=== PATIENT | male | born 1935 | race Caucasian/White ===

== ENCOUNTER 2016-12-19 15:35 | Emergency (ER) | payer MEDICARE, BC ==
[2016-12-19 16:08] VITALS: TEMP 98
[2016-12-19 16:42] LABS: BASOPHILS % (AUTO) 1 % (0-3); EOSINOPHILS % (AUTO) 2 % (0-9); HEMATOCRIT 33 % (39-53); MEAN CORPUSCULAR HGB CONC 34.1 gm/dl (32.0-36.0); MEAN CORPUSCULAR VOLUME 86 fL (80-100); MONOCYTES % (AUTO) 11.8 % (0-12); NEUTROPHILS % (AUTO) 71.3 % (37-80)
[2016-12-19 17:02] LABS: ALBUMIN 3.4 gm/dl (3.4-5.0); CALCIUM 8.7 mg/dl (8.5-10.1)
[2016-12-19 17:04] LABS: POTASSIUM 2.9 mMol/L (3.5-5.1)
[2016-12-19] MEDS ORDERED: POTASSIUM CHLORIDE 10 MEQ TER PO ONE (17:07)
[2016-12-19] MEDS ORDERED: SODIUM CHLORIDE 0.9% FLUSH 10 ML SOL IV PRN (17:26)
[2016-12-19] MEDS ORDERED: SODIUM CHLORIDE/KCL 20MEQ 1,000 ML IV ONE ×2 (17:28→17:31)
[2016-12-19] MEDS ORDERED: POTASSIUM CHLORIDE 10 MEQ TER ONE (17:38)
[2016-12-19] MEDS ORDERED: QUETIAPINE FUMARATE 25 MG TAB PO ONE (18:12)
[2016-12-19 18:14] LABS: APPEARANCE,URINE Clear; BILIRUBIN,URINE NEGATIVE (NEGATIVE); COLOR,URINE Yellow; GLUCOSE, URINE (UA) TRACE (NEGATIVE); KETONES,URINE NEGATIVE (NEGATIVE); LEUKOCYTE ESTERASE ,URINE NEGATIVE (NEGATIVE); NITRATE,URINE NEGATIVE (NEGATIVE); OCCULT BLOOD,URINE TRACE LYSED (NEG-TRACE); UROBILINOGEN,URINE 0.2 (0.2-1.0 EU)
[2016-12-19 18:37] LABS: RBC,URINE 0-2 (0-3AV/HPF); WBC,URINE 0-2 (0-5AV/HPF)
[2016-12-19] MEDS ORDERED: QUETIAPINE FUMARATE 25 MG TAB ONE (18:55)
[2016-12-19 20:37] VITALS: BP 167/89; PULSE 64; RESP 20; O2SAT 96
== END 2016-12-19 19:19 | disposition home or self-care (01) | DRG 57 ==
LOC: ED 15:35
DX: G31.83 Neurocognitive disorder with Lewy bodies (principal); F02.80 Dementia in other diseases classified elsewhere, unspecified severity, without behavioral disturbance, psychotic disturbance, mood disturbance, and anxiety; Z79.01 Long term (current) use of anticoagulants
CPT/HCPCS: 36415; 80053; 81001; 85025; 85610; 93005; 99284